=== PATIENT | male | born 1965 | race Caucasian/White ===

== ENCOUNTER 2021-10-17 09:26 | Outpatient (CLI) | payer BC, SELFPAY | END 2021-10-17 09:27 | disposition home or self-care (01) | LOC: OP CLINIC 09:28 | PROVIDERS: PCP Family Medicine; Visit Provider Internal Medicine Gastroenterology | DX: Z12.11 Encounter for screening for malignant neoplasm of colon (principal); K63.5 Polyp of colon; K62.1 Rectal polyp; K57.30 Diverticulosis of large intestine without perforation or abscess without bleeding; Z86.010 Personal history of colon polyps | CPT/HCPCS: 45385; 88305; 99153; J2250; J3010 ==